=== PATIENT | male | born 1975 | race Caucasian/White ===

== ENCOUNTER 2017-10-15 13:10 | Emergency (ER) | payer OTHER ==
[~2017-10-15] VITALS: Ht 182.9 cm; Wt 86.0 kg
[2017-10-15 13:17] VITALS: TEMP 36.4; Ht 182.9 cm; Wt 86.0 kg
[2017-10-15] MEDS ORDERED: DIPHTHERIA/TETANUS/PERTUSSIS 0.5 ML SYR/VIAL IM. ONE (13:45)
[2017-10-15 13:55] VITALS: BP 118/70; PULSE 72; O2SAT 97
--- NOTE | 2017-10-15 19:04 | EMERGENCY ROOM VISIT NOTE ---
History First contact with patient: 13:21 Chief Complaint: FOREIGNBODY ANY BODY PART Stated Complaint: FISH HOOK IN RIGHT HAND History of Present Illness The patient is a 41 year old male who presents to the Emergency Room with complaints of embedded fishhook in his right hand. The patient states that he was preparing to fish and accidentally got the fishhook stuck in the dorsum of the right hand. There is minimal bleeding. He has full sensation and range of motion of the right hand. He does not believe he is up-to-date on his tetanus. He rates his discomfort a 2/10. Review of Systems More than 10 systems were reviewed and otherwise negative with the exception of history of present illness. Past Medical/Surgical History No chronic medical disease Family History No pertinent family history Social History Housing Status: lives with family Occupation Status: employed Current/Historical Medications No Active Prescriptions or Reported Meds Physical Exam Vital Signs Date Time Temp Pulse Resp B/P (MAP) Pulse Ox O2 Delivery O2 Flow Rate FiO2 10/15/17 13:55 72 16 118/70 97 10/15/17 13:17 36.4 75 16 112/76 97 Room Air Physical Exam VITALS: Vitals are noted on the nurse's note and reviewed by myself. Vital signs stable. GENERAL: Well-developed, well-nourished, white male, who is in no acute distress and resting comfortably. Patient is cooperative with the examination. MUSCULOSKELETAL: There is an obvious fishhook foreign body appreciated in the right hand dorsum between the first and second digits. The patient has full sensation and range of motion of the hand. After fishhook removal the patient continued with full sensation and range of motion. NEURO: Patient was alert and oriented to person place and time. CN II through XII grossly intact. Medical Decision & Procedures Medications Administered Medications (Trade) Dose Ordered Sig/Naveed Route Start Time Stop Time Status Last Admin Dose Admin Diphtheria/ Pertussis/Tetanus Vacc (Adacel Inj) 0.5 ml ONCE ONCE IM. 10/15/17 13:45 10/15/17 13:46 DC 10/15/17 13:40 0.5 ML ED Course Physical exam and history were performed. Nursing notes, EMR, and Medication List were personally reviewed. Patient appears to have a foreign body of his right hand. The fishhook that was visible was secured utilizing umbilical tape. Utilizing quick traction the fishhook was removed in a retrograde fashion without complication. The patient tolerated this well. The small puncture wound was irrigated and cleansed. A bacitracin dressing was applied. The patient was given an updated tetanus. He was invited back to the ER with any new, worsening, or concerning symptoms. The chart was completed utilizing [employer] Speech Voice Recognition Software. Grammatical errors, random word insertions, pronoun errors, and incomplete sentences are an occasional consequence of this system due to software limitations, ambient noise, and hardware issues. Any formal questions or concerns about the content, text, or information contained within the body of this dictation should be directly addressed to the provider for clarification. . Medical Decision Differential diagnosis includes, but is not limited to: Foreign body, laceration , abrasion, need for tetanus, and others Impression Primary Impression: Foreign body in hand Departure Information Dispostion Home / Self-Care Condition GOOD Prescriptions No Active Prescriptions or Reported Meds Forms WORK / SCHOOL INSTRUCTIONS, HOME CARE DOCUMENTATION FORM, IMPORTANT VISIT INFORMATION Patient Instructions [facility] Additional Instructions You were seen and evaluated today on an emergency basis only. This is not a substitute for, or an effort to provide, complete comprehensive medical care. It is not possible to recognize and treat all injuries or illnesses in a single emergency department visit. For this reason it is recommended that you followup with your primary care physician next week with any ongoing or persisting symptoms. Applying antibiotic ointment like bacitracin twice daily for the next 3 or 4 days. You are welcome to return to the emergency department anytime with new, worsening, or concerning symptoms.
== END 2017-10-15 13:58 | disposition home or self-care (01) ==
LOC: C.EDB 13:12 → C.EDD 13:58
DX: S60.551A Superficial foreign body of right hand, initial encounter (principal); W45.8XXA Other foreign body or object entering through skin, initial encounter; Y92.9 Unspecified place or not applicable

== ENCOUNTER → 2018-03-14 | Outpatient (CLI) | payer OTHER ==
--- NOTE | 2018-03-14 14:51 | DIAGNOSTIC IMAGING REPORT ---
PELVIS 1 OR 2 VIEW ROUTINE CLINICAL HISTORY: LOW BACK PAIN pain COMPARISON: None. DISCUSSION: The bones and joint spaces appear intact. There is no evidence of fracture, dislocation or bony disease. There is no evidence for soft tissue swelling. IMPRESSION: Negative study. The above report was generated using voice recognition software. It may contain grammatical, syntax or spelling errors. Electronically signed by: Buddy Adkins M.D. 03/14/2018 2:50 PM Dictated Date/Time: 03/14/2018 2:50 PM
--- NOTE | 2018-03-14 14:55 | DIAGNOSTIC IMAGING REPORT ---
LUMBAR SPINE RADIOGRAPHS, INCLUDING FLEXION AND EXTENSION CLINICAL HISTORY: Low back pain. COMPARISON: Lumbar spine radiographs March 17, 2016. FINDINGS: Alignment of the lumbar spine is anatomic. There is no evidence for instability during flexion or extension. No fracture or suspicious lesion is present. There is minimal disc space narrowing at L5-S1. There is mild multilevel endplate osteophytosis. Minimal multilevel facet arthrosis is present. Sacroiliac joints are intact. IMPRESSION: 1. No lumbar spine fracture. 2. Minimal disc space narrowing at L5-S1. Minimal multilevel facet arthrosis. 3. No evidence for lumbar spine instability during flexion or extension. Electronically signed by: Marco A Hoff M.D. 03/14/2018 2:53 PM Dictated Date/Time: 03/14/2018 2:52 PM
== END | disposition home or self-care (01) ==
LOC: C.RAD1850 14:02
PROVIDERS: ATTEND Internal Medicine
DX: M47.817 Spondylosis without myelopathy or radiculopathy, lumbosacral region (principal); M48.07 Spinal stenosis, lumbosacral region